=== PATIENT | female | born 1940 | race Caucasian/White ===

== ENCOUNTER 2017-09-08 10:16 | Inpatient (IN) ==
[2017-09-08] MEDS ORDERED: IOPAMIDOL 100 ML BOTTLE IJ ONE (10:17)
[2017-09-08] MEDS: METOPROLOL TARTRATE 5 MG/5 ML VIAL IV SCH ×3 (10:30→10:40)
[2017-09-08] MEDS ORDERED: DILTIAZEM 125 MG/25 ML VIAL IV ONE (10:32)
[2017-09-08] MEDS ORDERED: DILTIAZEM 25 MG/5 ML VIAL IV ONE ×2 (10:32→10:48)
[2017-09-08] MEDS ORDERED: METOPROLOL TARTRATE 5 MG/5 ML VIAL IV ONE ×2 (10:35→10:45)
[2017-09-08] MEDS ORDERED: FUROSEMIDE 40 MG/4 ML VIAL IV ONE (10:44)
[2017-09-08] MEDS ORDERED: DILTIAZEM 125 MG in DEXTROSE 5% IN WATER 100 ML IV SCH (11:00)
[2017-09-08 11:42] LABS: Mean Cell Volume 83.6 fL (80.0-100.0); Mean Corpuscular HGB Conc 32.1 g/dL (31.0-36.0); Mean Corpuscular Hemoglobin 26.8 pg (26.0-34.0); Platelet Count 209 K/mcL (140-440); RBC 4.66 M/mcL (4.00-5.20); Red Cell Distribution Width 14.8 % (11.5-14.5)
--- NOTE | 2017-09-08 11:42 | Cat Scan Report ---
CLINICAL INFORMATION: The atrial fibrillation pleural effusion shortness of breath COMPARISON: None. TECHNIQUE: 80 cc of Isovue-300 were injected intravenously. Using SmartPrep to maximize pulmonary artery opacification, 2.5 mm helical slices were obtained from the lung apices through the lung bases. Following reconstruction, 2.5 mm sagittal, coronal, and axial reformations were processed. The exam was reviewed at mediastinal, lung, and bone windows. The exam was performed using radiation dose optimization techniques including, but not limited to, automated exposure control, adjustment of the mA and/or kV according to patient size and use of iterative reconstruction technique. FINDINGS: Mediastinal windows show the pulmonary arteries are well opacified - no evidence of embolus. The central pulmonary arteries are mildly enlarged - the main pulmonary diameter is 3.4 cm. The thoracic aorta is noncontrasted, but normal in contour and caliber. The heart is mildly enlarged. There a few borderline enlarged lymph nodes in the lower mediastinum. It esophagus is normal thyroid is normal Pulmonary parenchymal windows show moderate right and small left pleural effusions with compressive atelectasis in the posterior right lower lobe. There are small tree-in-bud infiltrates in the anterior segment of the right upper lobe and the right middle lobe. Bones and soft tissues the chest wall are unremarkable IMPRESSION: 1. No evidence of pulmonary embolus 2. Mild enlargement of the central pulmonary arteries suggesting pulmonary hypertension. Consider confirmation with echocardiogram 3. Moderate right and small left pleural effusion with compressive atelectasis in the posterior right lower lobe 4. Small tree-in-bud infiltrates in the anterior segment of the right upper lobe and right middle lobe. These are typically infectious Interpreted and Authenticated by: Kenny Trevizo 09/08/17
[2017-09-08 11:49] LABS: ALT/SGPT 47 U/l (0-40); Albumin/Globulin Ratio 1.4 (1.0-2.3); Alkaline Phosphatase 60 U/L (39-117); Blood Urea Nitrogen 9 mg/dl (8-23)
[2017-09-08] MEDS ORDERED: PIPERACILLIN SODIUM/TAZOBACTAM 3.375 GM in DEXTROSE 5% IN WATER 50 ML IV ONE (11:55)
[2017-09-08 12:20] LABS: Appearance,Urine HAZY; Bacteria,Urine 0 /hpf (0); Bilirubin,Urine NEG (NEG); Color,Urine YELLOW; Glucose,Urine (UA) NEGATIVE (NEG); Leukocyte Esterase,Urine 25 /uL (NEG); Mucus,Urine MANY /hpf (0); Nitrate,Urine NEG (NEG); Protein,Urine 100 mg/dL (NEG); Urine Blood NEG mg/dL (<0.03); Urine RBC 3 /hpf (0-1); Urine Squamous Epithelial Cell 8 /hpf (0-4); Urine Transitional Epi Cells 1 /hpf (0-2); Urine WBC 4 /hpf (0-4); Urobilinogen,Urine NEG (NEG)
--- NOTE | 2017-09-08 12:25 | Emergency Department Note ---
SOB HPI - General Chief Complaint: Shortness of Breath/Dyspnea Stated Complaint: shortness of breath, new onset a fib Time Seen by Provider: 09/08/17 10:31 Source: patient Mode of arrival: ambulatory Limitations: no limitations - History of Present Illness 77-year-old female sent over from [facility] care with atrial fibrillation and rapid ventricular response. I reviewed 2 EKGs from them which confirm this. She has apparently been sick for the last 2-3 weeks with racing heart rate, and coughing. They can come together or separately but both have been an issue as of late. She denies any chest pain but she is having shortness of breath today that has become increasingly severe. Because of the cough she initially saw her primary care provider who ordered a chest x-ray-saw moderate size right- sided pleural effusion which was tapped with thoracentesis. This was done about 12 days ago here by Dr. Liang. Pathology report reveals no malignancy. Thoracentesis helped but now symptoms have returned even worse. She does not have any rhinorrhea or congestion or fever. No nausea vomiting or diarrhea. She does not have a history of atrial fibrillation so this is new onset; nor is she anticoagulated - Related Data Home Medications Medication Instructions Recorded Confirmed aspirin 81 mg tablet,delayed 81 mg PO QDAY 08/31/15 09/08/17 release beneflex 200 mg PO QDAY 08/31/15 09/08/17 calcium + D 800 mg PO QDAY 08/31/15 09/08/17 hydrocodone 5 mg-acetaminophen 325 1 tab PO Q6H PRN 08/31/15 09/08/17 mg tablet multivitamin with minerals tablet 1 tab-cap PO QDAY tab 08/31/15 09/08/17 naproxen sodium 220 mg capsule 220 mg PO QDAY PRN cap 08/31/15 09/08/17 Previous Rx's Medication Instructions Recorded celecoxib 200 mg capsule 200 mg PO QDAY #90 cap 04/09/16 albuterol sulfate HFA 90 1 puff INHALATION Q6H PRN #8 g 08/24/17 mcg/actuation aerosol inhaler fluticasone 250 mcg-salmeterol 50 1 inh INHALATION Q12H #60 each 08/24/17 mcg/dose blistr powdr for inhalation Allergies Allergy/AdvReac Type Severity Reaction Status Date / Time No Known Drug Allergies Allergy Verified 09/08/17 09:36 Review of Systems All systems ED: reviewed and negative except as stated. Past Medical History - Past Medical History Attestation: Yes: The following information was validated with the patient. Medical history: Reports: osteoporosis, other (Pleural effusion) Surgical history ED: Reports: hip replacement, other (Carpal tunnel, shoulder surgery, mammoplasty, foot surgery, thoracentesis) - Social History smoking status: Never smoker Physical Exam Some mild acute distress and shortness of breath secondary to heart rate in the 160s. Normocephalic atraumatic. Conjunctive are clear sclerae nonicteric. No nasal discharge or congestion. Oropharynx is pink and moist. Posterior pharynx clear. Neck is supple without lymphadenopathy or thyromegaly. 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 Heart is regular rate and rhythm no murmurs appreciated. Lungs are clear to auscultation bilaterally without wheezes rales rhonchi or respiratory distress-however decreased lung sounds right base. Abdomen soft nontender nondistended. Normoactive bowel sounds. No pedal edema. +2 radial pulse. Alert oriented able to answer questions. No dysarthria ataxia or tremor Limitations: no limitations Course Vital Signs Temperature 97.6 F 09/08/17 10:17 Pulse Rate 68 09/08/17 10:17 Respiratory Rate 24 H 09/08/17 10:17 Pulse Oximetry (%) 98 09/08/17 10:17 Temperature 98.7 F 09/09/17 04:01 Pulse Rate 84 09/08/17 19:18 Respiratory Rate 16 09/09/17 05:01 Blood Pressure 100/66 09/09/17 05:01 Pulse Oximetry (%) 94 09/09/17 05:01 Shortness of Breath/Dyspnea - Lab Data Lab results reviewed: Yes I reviewed the patient's lab results. Result diagrams: 09/08/17 10:59 09/08/17 10:42 Lab Results 09/08/17 09/08/17 09/08/17 Range/Units 10:42 10:42 10:59 WBC 6.2 (4.5-11.0) K/mcL RBC 4.66 (4.00-5.20) M/mcL Hgb 12.5 (12.0-15.0) g/dL Hct 39.0 (36.0-48.0) % POC Hct 42.0 (36.0-48.0) % MCV 83.6 (80.0-100.0) fL MCH 26.8 (26.0-34.0) pg MCHC 32.1 (31.0-36.0) g/dL RDW 14.8 H (11.5-14.5) % Plt Count 209 (140-440) K/mcL MPV 9.5 (7.4-10.4) fL Total Counted 100 Seg Neutrophils % 45 (38-78) % Band Neutrophils % Not Reportable Lymphocytes % 42 (15-49) % Monocytes % (Manual) 11 (1-12) % Eosinophils % (Manual) 1 (0-7) % Basophils % (Manual) 1 (0-2) % Platelet Estimate Normal (NORMAL) RBC Morphology Normal (NORMAL) VBG Lactic Acid (0.5-2.2) mmol/L POC Sodium 139 (133-145) mmol/L Sodium 137 (133-145) mmol/L POC Potassium 3.7 (3.3-5.1) mmol/L Potassium 3.7 (3.3-5.1) mmol/L POC Chloride 102 (96-108) mmol/L Chloride 100 (96-108) mmol/L Carbon Dioxide 21 L (22-30) mmol/L POC Total CO2 23 (22-30) mmol/L Anion Gap 16.0 (8-16) POC BUN 8 (8-23) mg/dl BUN 9 (8-23) mg/dl Creatinine 0.8 (0.6-1.1) mg/dl POC Creatinine 0.9 (0.6-1.1) mg/dl GFR Calculation 71 Glucose 98 (70-105) mg/dL POC Glucose 96 (70-105) mg/dL Calcium 8.9 (8.6-10.4) mg/dl POC WB Ioniz Calcium 1.16 (1.16-1.32) mmol/L Total Bilirubin 0.8 (0.0-1.0) mg/dL AST 40 H (0-37) U/l ALT 47 H (0-40) U/l Alkaline Phosphatase 60 (39-117) U/L Lactate Dehydrogenase 270 H (94-250) U/L Troponin T (0-0.03) ng/ml NT-Pro-B Natriuret Pep 2334.0 H (0-450) pg/ml Total Protein 6.8 7.0 (5.9-8.4) gm/dL Albumin 4.0 (3.2-5.2) gm/dL Globulin 2.8 (2.2-3.7) gm/dL Albumin/Globulin Ratio 1.4 (1.0-2.3) Urine Color Urine Appearance Urine pH (5.0-9.0) Ur Specific [place] (1.000-1.035) Urine Protein (NEG) mg/dL Urine Glucose (UA) (NEG) mg/dL Urine Ketones (NEG) mg/dL Urine Occult Blood (<0.03) mg/dL Urine Nitrate (NEG) Urine Bilirubin (NEG) mg/dL Urine Urobilinogen (NEG) mg/dL Ur Leukocyte Esterase (NEG) /uL Urine RBC (0-1) /hpf Urine WBC (0-4) /hpf Ur Squamous Epith Cells (0-4) /hpf Ur Transition Epith Cell (0-2) /hpf Urine Bacteria (0) /hpf Urine Mucus (0) /hpf Ur Culture Indicated? 09/08/17 09/08/17 09/08/17 Range/Units 10:59 11:12 11:37 WBC (4.5-11.0) K/mcL RBC (4.00-5.20) M/mcL Hgb (12.0-15.0) g/dL Hct (36.0-48.0) % POC Hct (36.0-48.0) % MCV (80.0-100.0) fL MCH (26.0-34.0) pg MCHC (31.0-36.0) g/dL RDW (11.5-14.5) % Plt Count (140-440) K/mcL MPV (7.4-10.4) fL Total Counted Seg Neutrophils % (38-78) % Band Neutrophils % Lymphocytes % (15-49) % Monocytes % (Manual) (1-12) % Eosinophils % (Manual) (0-7) % Basophils % (Manual) (0-2) % Platelet Estimate (NORMAL) RBC Morphology (NORMAL) VBG Lactic Acid 1.1 (0.5-2.2) mmol/L POC Sodium (133-145) mmol/L Sodium (133-145) mmol/L POC Potassium (3.3-5.1) mmol/L Potassium (3.3-5.1) mmol/L POC Chloride (96-108) mmol/L Chloride (96-108) mmol/L Carbon Dioxide (22-30) mmol/L POC Total CO2 (22-30) mmol/L Anion Gap (8-16) POC BUN (8-23) mg/dl BUN (8-23) mg/dl Creatinine (0.6-1.1) mg/dl POC Creatinine (0.6-1.1) mg/dl GFR Calculation Glucose (70-105) mg/dL POC Glucose (70-105) mg/dL Calcium (8.6-10.4) mg/dl POC WB Ioniz Calcium (1.16-1.32) mmol/L Total Bilirubin (0.0-1.0) mg/dL AST (0-37) U/l ALT (0-40) U/l Alkaline Phosphatase (39-117) U/L Lactate Dehydrogenase (94-250) U/L Troponin T < 0.01 (0-0.03) ng/ml NT-Pro-B Natriuret Pep (0-450) pg/ml Total Protein (5.9-8.4) gm/dL Albumin (3.2-5.2) gm/dL Globulin (2.2-3.7) gm/dL Albumin/Globulin Ratio (1.0-2.3) Urine Color Yellow Urine Appearance Hazy Urine pH 6.0 (5.0-9.0) Ur Specific [place] 1.010 (1.000-1.035) Urine Protein 100 A (NEG) mg/dL Urine Glucose (UA) Negative (NEG) mg/dL Urine Ketones 5/tr A (NEG) mg/dL Urine Occult Blood Neg (<0.03) mg/dL Urine Nitrate Neg (NEG) Urine Bilirubin Neg (NEG) mg/dL Urine Urobilinogen Neg (NEG) mg/dL Ur Leukocyte Esterase 25 A (NEG) /uL Urine RBC 3 H (0-1) /hpf Urine WBC 4 (0-4) /hpf Ur Squamous Epith Cells 8 H (0-4) /hpf Ur Transition Epith Cell 1 (0-2) /hpf Urine Bacteria 0 (0) /hpf Urine Mucus Many A (0) /hpf Ur Culture Indicated? No - Radiology Data Radiology results reviewed: Yes I reviewed the patient's radiology results. CT angiogram of the chest shows tree-in-bud formations consistent with possible pneumonia, moderate right and smaller left pleural effusions, no pulmonary embolism, likely pulmonary hypertension - EKG Data EKG attestation: Yes I reviewed and interpreted this EKG. EKG results narrative: EKG shows rate of 135 atrial fibrillation with rapid ventricular response Disposition Pt seen by [employer] C[employer]IST APPRENTICE/PA only: No Clinical Impression: Atrial fibrillation with rapid ventricular response, Pleural effusion Pneumonia Qualifiers: Pneumonia type: due to unspecified organism Laterality: bilateral Lung location : unspecified part of lung Qualified Code(s): J18.9 - Pneumonia, unspecified organism Summary: On initial intake she is found to have A. fib with RVR and so we gave her 5 mg metoprolol IV 2 without significant effect. However when she did have coughing episodes her rate went down from 150s and 160s down to the 130s. We started the Cardizem drip immediately then after bolus which brought her rate down into the 90s-120s. Workup was done with laboratory and CT scan of the chest to rule out pulmonary embolism. She continues to have a right-sided pleural effusion that will likely require repeat thoracentesis. Pulmonary hypertension findings will need echocardiogram. Tree-in-bud formation suggest underlying pneumonia so antibiotics written for after cultures done. She was also given furosemide for the effusion I discussed her case with Dr. Walker electric knife operator on-call at [place] in [facility]-he agreed with my plan to admit her here for control of her atrial fibrillation, treatment of her pneumonia and further workup. After anticoagulation and acute inpatient treatment stabilization she can be electively cardioverted or followed up for other treatment for atrial fibrillation , such as ablation , as an outpatient I then discussed her case with Dr. Shin the hospitalist who agreed to accept patient for further care and evaluation as an inpatient Disposition: Xfer As Inpt ([facility]) Condition: Fair
[2017-09-08 12:26] LABS: Basophils % (Manual) 1 % (0-2); Eosinophils % (Manual) 1 % (0-7); Lymphocytes % 42 % (15-49); Monocytes % (Manual) 11 % (1-12); Platelet Estimate NORMAL (NORMAL); RBC Morphology NORMAL (NORMAL); Segmented Neutrophils % 45 % (38-78)
--- NOTE | 2017-09-08 14:20 | Internal Med History&Physical ---
Medical - H&P: HPI Patient information: Note initiated : 09/08/17 at 2:17 pm Service Date, if different from initiated Date: [] Patient: Angella Leonard a 77 y/o F admitted on for shortness of breath, new onset a fib. Chief Complaint: [] History of present illness: Ms. Leonard is a 77 year old Female with h/o arthritis, presents to the ER today for evaluation for shortness of breath and cough. The patient notes that she has been having cough for the last 2 months, the cough is dry, and worse when lying down, better with being upright and some cough medications. She denies any hemoptysis, She notes that the cough has been progressively getting worse. She also reports progressive shortness of breath which has been bothering her. She is more tired than usual ,and her activities at home take more than usual time to complete. She denies any fever or chills, no rigors, no other complaints She was seen by her PCP who did a Chest x ray and it had right sided pleural effusion, this was tapped by radiology on the 9th of this month, the fluid cytology was negative, but I was unable to get any other lab reports for fluid analysis. The patient reports improvement in her symptoms after the thoracocentesis. The patient again started to have worsening shortness of breath and cough and called her PCP office, who advised her to go to minor care In the minor care she was noted to be tachycardic, and EKG showed afib with rvr , she was then sent to the ER for further evaluation. In the ER her labs showed elevated bnp, X ray showed right sided effusion, CTA chest was neg for pe, but did show some tree bud infiltrates, as well as roxy effusion, right > left. The patient was in afib with rvr, not responding to bolus IV rate control medications and was placed on a cardizem drip and admitted to the hospital for further management. All systems: reviewed and no additional remarkable complaints except as stated ( as per HPI) Medical - H&P: PMH Medical history: Medical History Atrial fibrillation with rapid ventricular response (Acute) Pleural effusion (Acute) Pneumonia (Acute) Irregularly irregular heart rhythm (Acute) Shortness of breath (Acute) Irritable airways (Acute) History of right hip replacement (Acute) Osteoporosis (Chronic) Osteopenia (Chronic) Surgical history: Past Surgical History Hx of shoulder surgery (Acute) Hx of reduction mammoplasty (Acute) Hx of knee surgery (Acute) Hx of hand surgery (Acute) Hx of carpal tunnel repair (Acute) Hx of arthroscopy (Acute) Hx of foot surgery (Acute) Pertinent family history: Family History paternal grandmother Osteoporosis Disorder of thyroid Brother had some cardiac issue, Medical - H&P: Meds Home Medications Medication Instructions Recorded Confirmed Type aspirin 81 mg tablet,delayed 81 mg PO QDAY 08/31/15 09/08/17 History release beneflex 200 mg PO QDAY 08/31/15 09/08/17 History calcium + D 800 mg PO QDAY 08/31/15 09/08/17 History hydrocodone 5 mg-acetaminophen 325 1 tab PO Q6H PRN 08/31/15 09/08/17 History mg tablet multivitamin with minerals tablet 1 tab-cap PO QDAY tab 08/31/15 09/08/17 History naproxen sodium 220 mg capsule 220 mg PO QDAY PRN cap 08/31/15 09/08/17 History celecoxib 200 mg capsule 200 mg PO QDAY #90 cap 04/09/16 09/08/17 Rx albuterol sulfate HFA 90 1 puff INHALATION Q6H PRN #8 g 08/24/17 09/08/17 Rx mcg/actuation aerosol inhaler fluticasone 250 mcg-salmeterol 50 1 inh INHALATION Q12H #60 each 08/24/17 Rx mcg/dose blistr powdr for inhalation Allergies Allergy/AdvReac Type Severity Reaction Status Date / Time No Known Drug Allergies Allergy Verified 09/08/17 09:36 Medical - H&P: Exam - Constitutional Vitals: Temp Pulse Resp BP Pulse Ox 97.6 F 84 21 118/68 93 09/08/17 10:17 09/08/17 13:46 09/08/17 13:46 09/08/17 13:46 09/08/17 13:46 Exam: GENERAL: The patient is a well-developed, well-nourished in no apparent distress. Is alert and oriented x3. VITAL SIGNS: Reviewed and as noted elsewhere. HEENT: Head is normocephalic and atraumatic. Extraocular muscles are intact. Pupils are equal, round, and reactive to light. Nares appeared normal. Mouth appears any without lesions. Mucous membranes are moist. NECK: Normal to inspection, Supple, No lymphadenopathy or thyromegaly. LUNGS: Air entry decreased on right base, mild basilar crackles, no wheezing or rhonchi noted, pt able to speak full sentences. HEART: Tachycardic rate and rhythm irregular, S1 and S2 heard, no Gallop, S3 or Rub Noted, No Gross murmur heard. ABDOMEN: Soft, nontender, and nondistended. Positive bowel sounds. No hepatosplenomegaly was noted. EXTREMITIES: No cyanosis, clubbing, rash, lesions or edema. NEUROLOGIC: Cranial nerves II through XII are grossly intact. Motor and Sensory System Grossly Intact PSYCHIATRIC: Normal affect, Normal Mood. Appropriate Behavior. SKIN: No ulceration or wounds noted, No jaundice, No rash noted. Medical - H&P: Reslt - Labs CBC & Chem 7: 09/08/17 10:59 09/08/17 10:42 Labs: Short CBC 09/08/17 Range/Units 10:59 WBC 6.2 (4.5-11.0) K/mcL Hgb 12.5 (12.0-15.0) g/dL Hct 39.0 (36.0-48.0) % Plt Count 209 (140-440) K/mcL BMP 09/08/17 10:42 Sodium 137 Potassium 3.7 Chloride 100 Carbon Dioxide 21 L BUN 9 Creatinine 0.8 Glucose 98 Calcium 8.9 Cardiac Enzymes 09/08/17 Range/Units 10:59 Troponin T < 0.01 (0-0.03) ng/ml Liver Function 09/08/17 Range/Units 10:42 Total Bilirubin 0.8 (0.0-1.0) mg/dL AST 40 H (0-37) U/l ALT 47 H (0-40) U/l Alkaline Phosphatase 60 (39-117) U/L Albumin 4.0 (3.2-5.2) gm/dL Urine 09/08/17 Range/Units 11:37 Urine Color Yellow Urine Appearance Hazy Urine pH 6.0 (5.0-9.0) Ur Specific [place] 1.010 (1.000-1.035) Urine Protein 100 A (NEG) mg/dL Urine Glucose (UA) Negative (NEG) mg/dL Medical - H&P: A/P - Narrative A/P Narrative: A/P Afib with RVR: new onset: Etiology chf possible as the likely source, maricruz in light of recurrent pleural effusion, on iv cardizem drip for now, start on oral meds and try to titrate down IV drip. If rate remains uncontrolled will add metoprolol. Her CHADSVASC score would warrant anticoagulation, will start on lovenox for now and shift to oral agents once pt is more stable. CHF, Acute congestive heart failiure: systolic vs diastolic? get echo, and monitor. Pleural effusion: previous studies not available,? transudative vs exudative, repeat thoracocentesis, and sent fluid for analysis, CT is neg for loculations, Pneumonia: Community acquired pna, IV rocehin and zithromax for now, monitor for response Cough: Secondary to pleural effusion? vs underlyuing copd pt was started on inhalers by pcp, plan t ocontinue duonebs for now. DVT on lovenox Full code Cardiac diet. Social History - Social History lives independently: Yes marital status: single education level: master's degree occupational status: retired - Exercise frequency: 5-6 times per week - Tobacco smoking status: Never smoker - Alcohol alcohol intake frequency: 0-2 drinks per day - Substance use substance use type: does not use
[2017-09-08] MEDS ORDERED: ONDANSETRON 4 MG/2 ML VIAL IV PRN (14:24)
[2017-09-08] MEDS ORDERED: NALOXONE HCL 0.4 MG/ML VIAL IV PRN (14:24)
[2017-09-08] MEDS ORDERED: AZITHROMYCIN 500 MG in DEXTROSE 5% IN WATER 250 ML IV SCH (14:24)
[2017-09-08] MEDS ORDERED: BISACODYL 10 MG SUPP.RECT PR PRN (14:24)
[2017-09-08] MEDS ORDERED: cefTRIAXone 1 GM in DEXTROSE 5% IN WATER 50 ML IV SCH (14:24)
[2017-09-08] MEDS ORDERED: oxyCODONE/APAP 5/325MG TABLET PO PRN (14:24)
[2017-09-08] MEDS ORDERED: ENOXAPARIN 80 MG/0.8 ML SYRINGE SQ ONE (15:30)
--- NOTE | 2017-09-08 17:07 | Ultrasound Report ---
CLINICAL INFORMATION: Moderate right pleural effusion TECHNIQUE: The procedure and risks including the possibility of bleeding, infection and pneumothorax were explained to the patient. She understood and wished to proceed. With the patient in upright position, the fluid was localized over the posterior right 10th intercostal space at the posterior axillary line. The skin in this region was marked, prepped and locally anesthetized with 1% lidocaine to the level the parietal pleura using a 25-gauge needle. An 18-gauge AquaMobileeh needle was then advanced, under ultrasound guidance, into the fluid. 1.1 L of simple transudative appearing pleural fluid was aspirated. Post procedure scanning shows no residual fluid IMPRESSION: Successful right thoracentesis yielding 1.1 L of simple appearing transudative fluid. No apparent complication Interpreted and Authenticated by: Kenny Trevizo 09/08/17
[2017-09-08] MEDS: cefTRIAXone 1 GM VIAL IV SCH (17:08)
--- NOTE | 2017-09-08 17:17 | XRay Report ---
CLINICAL INFORMATION: Post right thoracentesis COMPARISON: 08/27/2017 FINDINGS: There is no residual right pleural effusion. No evidence of pneumothorax or other complication. Moderate cardiomegaly is unchanged. Mediastinum is unremarkable. Pulmonary vessels are slightly distended is minimal interstitial edema. Minor left basilar atelectasis and tiny left pleural effusion. IMPRESSION: 1. Mild CHF 2. No residual right pleural effusion following thoracentesis. No pneumothorax or other complication 3. Small left pleural effusion Interpreted and Authenticated by: Kenny Trevizo 09/08/17
[2017-09-08 17:19] LABS: Amylase,Pleural Fluid 15 U/L; LDH,Pleural Fluid 90 U/L; Total Protein,Pleural Fluid 2.4 gm/dL
[2017-09-08] MEDS: FLUTICASONE/SALMETEROL 250/50 INHALER #14 INH SCH (17:26)
[2017-09-08 18:20] LABS: Lymphocytes,Pleural Fluid 67 %; Neutrophils,Pleural Fluid 7 %
[2017-09-08 18:22] LABS: Appearance,Pleural Fluid HAZY; Color,Pleural Fluid YELLOW; Nucleated Cells,Pleural Fld 562 /cumm; RBC,Pleural Fluid < 50000 /cumm
[2017-09-08] MEDS ORDERED: IPRATROPIUM/ALBUTEROL 3 ML AMPUL.NEB NEB SCH (19:00)
[2017-09-08] MEDS ORDERED: POTASSIUM CHLORIDE 20 MEQ PACKET PO ONE (19:45)
[2017-09-08] MEDS ORDERED: METOPROLOL TARTRATE 5 MG/5 ML VIAL IV PRN (20:43)
[2017-09-08] MEDS: DILTIAZEM 30 MG TABLET PO SCH (21:06)
[2017-09-08] MEDS ORDERED: MAGNESIUM SULFATE 2 GM/50 ML BAG IV ONE ×2 (22:07→22:28)
[2017-09-08] MEDS ORDERED: METHOCARBAMOL 500 MG TABLET PO ONE (22:08)
[2017-09-08] MEDS: METOPROLOL TARTRATE 25 MG TABLET PO SCH (22:09)
[2017-09-08] MEDS: DILTIAZEM 125 MG in DEXTROSE 5% IN WATER 100 ML IV SCH (22:19)
[2017-09-09] MEDS: DILTIAZEM 30 MG TABLET PO SCH ×5 (00:34→17:36)
[2017-09-09] MEDS ORDERED: ENOXAPARIN 80 MG/0.8 ML SYRINGE SQ SCH (01:00)
[2017-09-09] MEDS: DILTIAZEM 125 MG in DEXTROSE 5% IN WATER 100 ML IV SCH ×3 (02:28→12:23)
[2017-09-09] MEDS: FLUTICASONE/SALMETEROL 250/50 INHALER #14 INH SCH ×2 (02:28→15:12)
[2017-09-09] MEDS: PANTOPRAZOLE 40 MG TABLET PO SCH (06:57)
[2017-09-09] MEDS: CELECOXIB 200 MG CAPSULE PO SCH (08:13)
[2017-09-09] MEDS: APIXABAN 5 MG TABLET PO SCH ×2 (08:13→20:40)
[2017-09-09] MEDS: METOPROLOL TARTRATE 25 MG TABLET PO SCH ×2 (08:13→20:40)
[2017-09-09] MEDS: CALCIUM W/VIT D3 500 MG TABLET PO SCH (08:13)
[2017-09-09] MEDS: MULTIVIT,THER IRON,CA,FA & MIN 1 TABLET PO SCH (08:13)
[2017-09-09] MEDS: POTASSIUM CHLORIDE 10 MEQ TABLET PO SCH (08:38)
[2017-09-09] MEDS: FUROSEMIDE 20 MG TABLET PO SCH (08:43)
[2017-09-09] MEDS ORDERED: ASPIRIN 81 MG TAB.CHEW PO SCH (09:00)
[2017-09-09] MEDS: cefTRIAXone 1 GM VIAL IV SCH (09:02)
[2017-09-09] MEDS: AZITHROMYCIN 250 MG in DEXTROSE 5% IN WATER 250 ML IV SCH (09:53)
[2017-09-09] MEDS ORDERED: AZITHROMYCIN 250 MG in DEXTROSE 5% IN WATER 250 ML IV SCH (14:15)
[2017-09-09] MEDS ORDERED: DILTIAZEM 125 MG in DEXTROSE 5% IN WATER 100 ML IV PRN (15:00)
--- NOTE | 2017-09-09 16:01 | Internal Med Progress Note ---
Medical - PN: Subj Patient information: Note initiated : 09/09/17 at 3:57 pm Service Date, if different from initiated Date: [] Patient: Angella Leonard a 77 y/o F admitted on 09/08/17 for SOB, New onset AFib/ Afib with RVR, Pneumonia. Chief Complaint: [] Interval history: Ms. Leonard is a 77 year old Female with h/o arthritis, presents to the ER today for evaluation for shortness of breath and cough. The patient notes that she has been having cough for the last 2 months, the cough is dry, and worse when lying down, better with being upright and some cough medications. She denies any hemoptysis, She notes that the cough has been progressively getting worse. She also reports progressive shortness of breath which has been bothering her. She is more tired than usual ,and her activities at home take more than usual time to complete. She denies any fever or chills, no rigors, no other complaints She was seen by her PCP who did a Chest x ray and it had right sided pleural effusion, this was tapped by radiology on the of this month, the fluid cytology was negative, but I was unable to get any other lab reports for fluid analysis. The patient reports improvement in her symptoms after the thoracocentesis. The patient again started to have worsening shortness of breath and cough and called her PCP office, who advised her to go to minor care In the minor care she was noted to be tachycardic, and EKG showed afib with rvr , she was then sent to the ER for further evaluation. In the ER her labs showed elevated bnp, X ray showed right sided effusion, CTA chest was neg for pe, but did show some tree bud infiltrates, as well as roxy effusion, right > left. The patient was in afib with rvr, not responding to bolus IV rate control medications and was placed on a cardizem drip and admitted to the hospital for further management. Sep 09 patient seen examined no acute overnight issues pt had pleural tap done which was transudative cough better, but worse when trying to talk plan was to see if we couhd d/c her home today, but h er bp has been fairly labile she remains on dual chronotropic agents, metoprolol and cardizem. Pertinent ROS: Denies headache, dizziness Denies chest pain, palpitations opresent cough, sob improved. Denies abdominal pain, nausea or vomiting. - Constitutional Vitals: Vital Signs Temp Pulse Resp BP Pulse Ox 97.9 F 93 H 18 103/65 95 09/09/17 12:00 09/09/17 12:00 09/09/17 12:00 09/09/17 14:01 09/09/17 14:01 Period Temp Pulse Resp BP Sys/Fajardo Pulse Ox Last 24 Hr 97.9 F-99.0 F 84-93 16-18 68-117/29-82 89-98 Intake and Output 09/09/17 09/09/17 09/09/17 05:59 13:59 21:59 Intake Total 123 / 123 280 / 280 300 / 300 Output Total 125 / 125 300 / 300 300 / 300 Balance -2 / -2 -20 / -20 0 / 0 Intake & Output: Intake & Output 09/09/17 09/09/17 09/09/17 05:59 13:59 21:59 Intake Total 123 / 123 280 / 280 300 / 300 Output Total 125 / 125 300 / 300 300 / 300 Balance -2 / -2 -20 / -20 0 / 0 Intake: IV 3 / 3 Cardizem 125 mg In Dextrose 5% 3 / 3 in Water 100 ml @ 5 MG/HR 5 mls /hr IV Q6H [facility] Rx#:[id number] Oral 120 / 120 280 / 280 300 / 300 Output: Void Amount 125 / 125 300 / 300 300 / 300 Other: Meal Breakfast Percent of Meal Consumed 100% Exam: Constitutional; Afebrile, cooperative, alert, not in distress. Eyes- No icterus, , No periorbital swelling Ears- Ext ear normal, hearing normal to conversation. Neck- Midline trachea, supple Respiratory system: Air Entry equal on both sides, No crackles or wheezing, no rhonchi. CVS- Rate rhythm irregular, S1,S2 heard, no gallop, no rub. 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 Medical - PN: Obj Da - Labs CBC & Chem 7: 09/08/17 10:59 09/08/17 10:42 Labs: Abnormal Lab Results 09/08/17 09/08/17 09/08/17 11:37 10:59 10:42 RDW 14.8 H Carbon Dioxide AST ALT Lactate Dehydrogenase 270 H NT-Pro-B Natriuret Pep Urine Protein 100 A Urine Ketones 5/tr A Ur Leukocyte Esterase 25 A Urine RBC 3 H Ur Squamous Epith Cells 8 H Urine Mucus Many A 09/08/17 10:42 RDW Carbon Dioxide 21 L AST 40 H ALT 47 H Lactate Dehydrogenase NT-Pro-B Natriuret Pep 2334.0 H Urine Protein Urine Ketones Ur Leukocyte Esterase Urine RBC Ur Squamous Epith Cells Urine Mucus Meds: Medications Bisacodyl (Dulcolax) 10 mg WV Q3DP PRN PRN Reason: Constipation Calcium/Vitamin D (Calcium W/Vit D3) 500 mg PO DAILY [facility] Last Admin: 09/09/17 08:13 Dose: 500 mg Ceftriaxone Sodium (Rocephin) 1 gm IV Q24H [facility] Last Admin: 09/09/17 09:02 Dose: 1 gm Celecoxib (Celebrex) 200 mg PO QDAY [facility] Last Admin: 09/09/17 08:13 Dose: 200 mg Diltiazem HCl (Cardizem) 60 mg PO Q6 [facility] Last Admin: 09/09/17 12:24 Dose: 60 mg Furosemide (Lasix) 20 mg PO DAILY [facility] Last Admin: 09/09/17 08:43 Dose: 20 mg Azithromycin 250 mg/ Dextrose 250 mls @ 250 mls/hr IV Q24H [facility] Stop: 09/12/17 10:59 Last Admin: 09/09/17 09:53 Dose: 250 mls/hr Diltiazem HCl 125 mg/ Dextrose 125 mls @ 5 mls/hr IV Q6HP PRN; Protocol; 5 MG/ HR PRN Reason: TITRATE TO KEEP HR <100,SBP>90 Iron Carb/Multivit/[place]/Folic Acid (Multivitamin W/Minerals) 1 tab PO DAILY [facility] Last Admin: 09/09/17 08:13 Dose: 1 tab Metoprolol Tartrate (Lopressor) 5 mg IV Q4HP PRN PRN Reason: Tachyarrhythmias Last Admin: 09/08/17 22:10 Dose: 5 mg Metoprolol Tartrate (Lopressor) 25 mg PO BID [facility] Last Admin: 09/09/17 08:13 Dose: 25 mg Naloxone HCl (Narcan) 0.1 mg IV Q2MIN PRN PRN Reason: Opiate Reversal Ondansetron HCl (Zofran) 4 mg IV Q4HP PRN PRN Reason: Nausea And Vomiting Oxycodone/Acetaminophen (Percocet 5-325 Mg) 1 tab PO Q4HP PRN PRN Reason: PAIN LEVEL 3-6 Last Admin: 09/08/17 19:53 Dose: 1 tab Pantoprazole S[facility] ([facility]ix) [facility] Last Admin: 09/09/17 06:57 Dose: 40 mg Potassium Chloride (Kdur) 10 meq PO QACOX [facility] Last Admin: 09/09/17 08:38 Dose: 10 meq Fluticasone/Salmeterol (Advair 250-50 Diskus) 1 puff INH Q12H [facility] Last Admin: 09/09/17 15:12 Dose: Not Given Medical - PN: A/P - Time Spent With Patient Total time spent is greater than 50% in coordination of care (as documented) at patient's floor/unit and/or counseling patient: - Narrative A/P Narrative: A/P Afib with RVR: new onset: likely chf contributing, on cardizen, and metoprolol, bp stable this pm, if remains stable will continue with this regime , if not stop cardizem and use digoxin. patient on eliquis for anticoagulation. CHF, Acute congestive heart failiure, systolic hf on echo, started on lasix and Kcl, monitor response. no overly fluid overloaded Pleural effusion: previous studies not available,? transudative vs exudative, repeat thoracocentesis, and sent fluid for analysis, CT is neg for loculations, Pneumonia: Community acquired pna, IV rocehin and zithromax for now, monitor for response Cough: Secondary to pleural effusion? vs underlyuing copd pt was started on inhalers by pcp, unable to tolerate duoneb overnight, start on xoponex. DVT on eliquis Full code Cardiac diet. Medical - PN: Qual - VTE Deep Vein Thrombosis/Pulmonary Embolism Present on Admission: No
[2017-09-09] MEDS: LEVALBUTEROL 1.25 MG/3 ML AMPUL.NEB NEB SCH (19:27)
[2017-09-10] MEDS: DILTIAZEM 30 MG TABLET PO SCH ×3 (00:17→12:38)
[2017-09-10] MEDS: LEVALBUTEROL 1.25 MG/3 ML AMPUL.NEB NEB SCH ×3 (02:13→10:23)
[2017-09-10] MEDS: FLUTICASONE/SALMETEROL 250/50 INHALER #14 INH SCH (02:13)
--- NOTE | 2017-09-10 08:28 | XRay Report ---
CLINICAL INFORMATION: Follow pleural effusion COMPARISON: 09/08/2017 FINDINGS: Moderate cardiomegaly is unchanged. Mediastinum and pulmonary vessels are normal. Small right pleural effusion is partially reaccumulated. Tiny left pleural effusion is unchanged. Minor bibasilar atelectasis noted IMPRESSION: Slight reaccumulation of small right pleural effusion. Tiny left pleural effusion unchanged Interpreted and Authenticated by: Kenny Trevizo 09/10/17
[2017-09-10] MEDS ORDERED: ACETAMINOPHEN 325 MG TABLET PO PRN (08:50)
[2017-09-10] MEDS: cefTRIAXone 1 GM VIAL IV SCH (08:52)
[2017-09-10] MEDS: AZITHROMYCIN 250 MG in DEXTROSE 5% IN WATER 250 ML IV SCH (08:55)
[2017-09-10] MEDS: APIXABAN 5 MG TABLET PO SCH (08:56)
[2017-09-10] MEDS: MULTIVIT,THER IRON,CA,FA & MIN 1 TABLET PO SCH (08:56)
[2017-09-10] MEDS: METOPROLOL TARTRATE 25 MG TABLET PO SCH (08:56)
[2017-09-10] MEDS: FUROSEMIDE 20 MG TABLET PO SCH (08:56)
[2017-09-10] MEDS: CELECOXIB 200 MG CAPSULE PO SCH (08:56)
[2017-09-10] MEDS: CALCIUM W/VIT D3 500 MG TABLET PO SCH (08:56)
[2017-09-10] MEDS: POTASSIUM CHLORIDE 10 MEQ TABLET PO SCH (08:56)
[2017-09-10] MEDS: PANTOPRAZOLE 40 MG TABLET PO SCH (08:56)
[2017-09-10 09:03] LABS: Basophils # (Auto) 0.1 K/mcL (0.0-0.3); Basophils % (Auto) 1.1 % (0.0-2.0); Eosinophils # (Auto) 0.2 K/mcL (0.0-0.7); Granulocytes % (Auto) 57.1 % (38.0-78.0); Lymphocytes # (Auto) 1.5 K/mcL (1.5-4.8); Lymphocytes % (Auto) 26.1 % (15.5-49.0); Mean Corpuscular HGB Conc 32.3 g/dL (31.0-36.0); Mean Corpuscular Hemoglobin 26.8 pg (26.0-34.0); Monocytes # (Auto) 0.7 K/mcL (0.1-0.9); Monocytes % (Auto) 12.7 % (1.0-12.0); Platelet Count 192 K/mcL (140-440); RBC 4.45 M/mcL (4.00-5.20); Red Cell Distribution Width 14.5 % (11.5-14.5)
[2017-09-10 09:12] LABS: ALT/SGPT 78 U/l (0-40); Albumin/Globulin Ratio 1.7 (1.0-2.3); Alkaline Phosphatase 60 U/L (39-117); Bilirubin,Direct < 0.2 mg/dL (0.0-0.3); Blood Urea Nitrogen 9 mg/dl (8-23); Gamma Glutamyl Transpeptidase 28 U/L (5-36); Magnesium 2.3 mg/dL (1.6-2.5); Uric Acid 4.7 mg/dL (2.5-8.0)
--- NOTE | 2017-09-10 11:44 | Discharge Summary ---
Medical - DS: Prov Patient information: Note initiated : 09/10/17 at 11:42 am Service Date, if different from initiated Date: [] Patient: Angella Leonard 77 y/o F admitted on 09/08/17 for SOB, New onset AFib/ Afib with RVR, Pneumonia. Chief Complaint: [] Date of admission: 09/08/17 14:58 Discharge date: 09/10/17 Primary care physician: Diomedes Salvador Admitting clinician: Tiffani Shin Consults: 09/08/17 Consult to Physician [CONS] Stat Comment: Consulting Provider: Tiffani Shin Reason For Exam: Physician to Consult Discharging clinician: Tiffani Shin Medical - DS: Meds - Discharge Medications Prescriptions: Apixaban [Eliquis] 5 mg PO BID #60 tab Diltiazem HCl [Diltiazem 24Hr ER] 180 mg PO DAILY #30 cap.er.24h Furosemide [Lasix] 20 mg PO DAILY #30 tab Levofloxacin [Levaquin] 500 mg PO DAILY #3 tab Metoprolol Succinate [Toprol Xl] 50 mg PO DAILY #30 tab.er.24h Potassium Chloride [Kdur] 10 meq PO QAMCC #30 tab Active and Home Medications: Home Medications aspirin 81 mg tablet,delayed release 81 mg PO QDAY 08/31/15 [History Confirmed 09/08/17 Last Taken Unknown] beneflex 200 mg PO QDAY 08/31/15 [History Confirmed 09/08/17 Last Taken Unknown] calcium + D 800 mg PO QDAY 08/31/15 [History Confirmed 09/08/17 Last Taken Unknown] hydrocodone 5 mg-acetaminophen 325 mg tablet 1 tab PO Q6H PRN 08/31/15 [History Confirmed 09/08/17 Last Taken Unknown] multivitamin with minerals tablet 1 tab-cap PO QDAY tab 08/31/15 [History Confirmed 09/08/17 Last Taken Unknown] naproxen sodium 220 mg capsule 220 mg PO QDAY PRN cap 08/31/15 [History Confirmed 09/08/17 Last Taken Unknown] celecoxib 200 mg capsule 200 mg PO QDAY #90 cap 04/09/16 [Rx Confirmed 09/08/17 Last Taken Unknown] albuterol sulfate HFA 90 mcg/actuation aerosol inhaler 1 puff INHALATION Q6H PRN #8 g 08/24/17 [Rx Confirmed 09/08/17 Last Taken Unknown] fluticasone 250 mcg-salmeterol 50 mcg/dose blistr powdr for inhalation 1 inh INHALATION Q12H #60 each 08/24/17 [Rx Confirmed 09/08/17 Last Taken Unknown] Medical - DS: Hosp Hospital course: Ms. Leonard is a 77 year old Female with h/o arthritis, presents to the ER for evaluation for shortness of breath and cough. The patient notes that she has been having cough for the last 2 months, the cough is dry, and worse when lying down, better with being upright and some cough medications. She denies any hemoptysis, She notes that the cough has been progressively getting worse. She also reports progressive shortness of breath which has been bothering her. She is more tired than usual ,and her activities at home take more than usual time to complete. She denies any fever or chills, no rigors, no other complaints She was seen by her PCP who did a Chest x ray and it had right sided pleural effusion, this was tapped by radiology on the 9th of this month, the fluid cytology was negative, but I was unable to get any other lab reports for fluid analysis. The patient reports improvement in her symptoms after the thoracocentesis. The patient again started to have worsening shortness of breath and cough and called her PCP office, who advised her to go to minor care In the minor care she was noted to be tachycardic, and EKG showed afib with rvr , she was then sent to the ER for further evaluation. In the ER her labs showed elevated bnp, X ray showed right sided effusion, CTA chest was neg for pe, but did show some tree bud infiltrates, as well as roxy effusion, right > left. The patient was in afib with rvr, not responding to bolus IV rate control medications and was placed on a cardizem drip and admitted to the hospital for further management. In the hospital, the patient afib was initially managed with Cardizem drip, she was then successfully transitioned to oral meds, She needed both cardizem and metoprolol to keep her rate at goal, Her systolic bp was on the lower end, but her MAP stayed > 65. She had no dizziness with the new medications. The patient underwent an Echo which showed normal lv size, mild lvh, mildly decreased systolic function, biatrial enlargement moderate, unable to determine if diastolic dysfunction is present. Patient likely also has diastolic component to her heart failure. AT the time of discharge she will be sent home on Po eliquis 5mg bid for anticoagulation. Major risks benefits of the medication discussed, all questions answered. She has been started on po cardizem 180mg and po metoprolol SR 50mg once daily. She can be gradually transitioned to metoprolol only as outpatient. Should her bp not tolerate changes in meds and her heart rate not improve, digoxin can be considered. I will refer her to cash applications manager as outpatient. CHF: with global hypokinesis, and new onset afib, on beta blockers, started on lasix 20mg with Kcl supplementation for now, I have not started her on lisinopril given her soft blood pressure. this could be considered as outpatient if bp allows. Pneumonia: Some tree bud appearnces were noted on CT scan during presentation, pt was initially treated with rocehin/ zithromax, will be discharged on levofloxa x 3 more days to complete course of treatment. Cough/ Pleural effusion: The patient continues to have chr cough, which likely was a result of pleural effusion, however her cough is worse at night, I am adding prilosec 20mg at discharge to see if this will help her. Her pleural effusion was tapped again this visit, cultures neg, and it was transudative. I did not send for cytology as this was previously done by PCP and was negative. Should she have recurring effusion, she may benefit from evaluation by the labor relations teacher. She has been advised to avoid celebrex, nsaids and aspirin as she will now be on blood thinners. Discharge diagnosis: Afib with RVR, Pleural effusion, CHF, Pneumonia - Time Spent with Patient Total time spent providing and/or coordinating discharge services: Greater than 30 minutes Medical - DS: Exam - Constitutional Vitals: Vital Signs Temp Pulse Pulse Pulse Pulse Resp BP 09/10/17 07:44 90 18 09/10/17 06:58 90 18 09/10/17 04:01 113/61 09/10/17 04:00 98.9 F 113/61 09/10/17 02:02 103/90 09/10/17 00:01 101/56 09/10/17 00:00 99.0 F H 16 101/56 09/09/17 22:01 18 115/84 09/09/17 20:01 99.3 F H 103/70 09/09/17 20:00 100 H 100 H 120 H 20 09/09/17 19:29 110 H 18 09/09/17 18:00 18 117/65 09/09/17 16:01 93/79 09/09/17 16:00 99.2 F H 83 18 09/09/17 14:01 103/65 09/09/17 12:01 96/71 09/09/17 12:00 97.9 F 93 H 18 BP Pulse Ox 09/10/17 07:44 95 09/10/17 06:58 09/10/17 04:01 96 09/10/17 04:00 90 09/10/17 02:02 95 09/10/17 00:01 92 09/10/17 00:00 90 09/09/17 22:01 95 09/09/17 20:01 93 09/09/17 20:00 96 09/09/17 19:29 97 09/09/17 18:00 98 09/09/17 16:01 09/09/17 16:00 93/79 96 09/09/17 14:01 95 09/09/17 12:01 09/09/17 12:00 96/71 98 Intake and Output 09/09/17 09/10/17 09/10/17 21:59 05:59 13:59 Intake Total 600 / 600 600 / 600 Output Total 650 / 650 1200 / 1200 Balance -50 / -50 -600 / -600 Intake: Oral 600 / 600 600 / 600 Output: Void Amount 650 / 650 1200 / 1200 Other: Weight 164 lb 3.2 oz Additional comments: Constitutional; Afebrile, cooperative, alert, not in distress. Eyes- No icterus, , No periorbital swelling Ears- Ext ear normal, hearing normal to conversation. Neck- Midline trachea, supple Respiratory system: Air Entry equal on both sides, No crackles or wheezing, no rhonchi. CVS- Rate rhythm irregular, S1,S2 heard, no gallop, no rub. 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 Medical - DS: Data Procedures and tests throughout hospitalization: CTA chest IMPRESSION: 1. No evidence of pulmonary embolus 2. Mild enlargement of the central pulmonary arteries suggesting pulmonary hypertension. Consider confirmation with echocardiogram 3. Moderate right and small left pleural effusion with compressive atelectasis in the posterior right lower lobe 4. Small tree-in-bud infiltrates in the anterior segment of the right upper lobe and right middle lobe. These are typically infectious Xray at d/c MPRESSION: Slight reaccumulation of small right pleural effusion. Tiny left pleural effusion unchanged Labs on day of discharge: Labs from last 24 hours 09/10/17 09/10/17 08:02 08:02 WBC 5.6 RBC 4.45 Hgb 11.9 L Hct 37.0 MCV 83.0 MCH 26.8 MCHC 32.3 RDW 14.5 Plt Count 192 MPV 9.8 Gran % 57.1 Lymph % (Auto) 26.1 [place] % (Auto) 12.7 H Eos % (Auto) 3.0 Baso % (Auto) 1.1 Gran # 3.2 Lymph # (Auto) 1.5 [place] # (Auto) 0.7 Eos # (Auto) 0.2 Baso # (Auto) 0.1 Sodium 132 L Potassium 4.4 Chloride 96 Carbon Dioxide 21 L Anion Gap 15.0 BUN 9 Creatinine 0.9 GFR Calculation 62 Glucose 118 H Uric Acid 4.7 Calcium 8.4 L Phosphorus 2.6 L Magnesium 2.3 Total Bilirubin 0.6 Direct Bilirubin < 0.2 GGT 28 AST 58 H ALT 78 H Alkaline Phosphatase 60 Lactate Dehydrogenase 293 H Total Protein 6.3 Albumin 4.0 Globulin 2.3 Albumin/Globulin Ratio 1.7 Triglycerides 68 Preliminary micro results at discharge 09/08/17 13:05 Blood Culture - Preliminary Blood 09/08/17 12:14 Blood Culture - Preliminary Blood Medical - DS: A/P - Patient/Caregiver Discharge Instructions Activity: increase activity as tolerated Diet: Low Sodium (2gm), Cardiac Additional Instructions: Take medications as prescribed You have been started on eliquis, 5mg twice daily as a blood thinner, to prevent future strokes, its important you takes this medication, and do not stop unless you have talked with your doctor, monitor for bleeding, in urine and stools, Call your doctor if you notice any black stools or blood in urine and stools. you have been started on cardizem and metoprolol for atrial fibrillation. This will keep your heart rate in check, should you become dizzy with these medications, please go to the ER or talk to your doctor. Your doctor will adjust these medications in the clinic and hopefully you will need only one medication in the future. You also have heart failiure, and need to watch your salt intake closely, follow a low salt diet, I have started you on a water pill furosemide 20mg once daily, take a potassium supplement with this medication. If you are unable to tolerate the potassium supplement, then please eat foods rich in potassium. You had pneumonia on CT on presentation and need antibiotics x 3 more days. Go to the ER if dizziness, chest pain, shortness of breath or any other concerns. Follow up with PCP in 1 week, make sure your PCP checks your Kidney function / electrolytes to make sure you are doing ok Follow up with Dr Gracia in 1-2 weeks, Gun Stock Maker for further evaluation for new onset heart failure and atrial fibrillation. - Follow up Plan Follow up with: Diomedes Salvador MD [Primary Care Provider] - 09/24/17 2:30 pm Bryant Gracia MD [Physician] - Disposition: Home, Self-Care Prognosis: Fair Rehab Potential: Fair I certify that the patient requires SNF services: No Overall status at discharge: patient is progressing back to baseline Medical - DS: Qual - VTE Deep Vein Thrombosis/Pulmonary Embolism Present on Admission: No
[2017-09-10] MEDS ORDERED: ENOXAPARIN 40 MG/0.4 ML SYRINGE SQ ONE (11:54)
[2017-09-10] MEDS ORDERED: DILTIAZEM 180 MG CAP.XL.24H PO ONE (12:34)
[2017-09-10] MEDS ORDERED: METOPROLOL SUCCINATE 25 MG TAB.XL.24H PO ONE (13:00)
[2017-09-11] MEDS ORDERED: DILTIAZEM 180 MG CAP.XL.24H PO ONE (13:00)
== END 2017-09-10 14:05 | disposition home or self-care (01) | DRG 308 ==
LOC: ED 10:16 → ICU 14:40
PROVIDERS: ADMIT Internal Medicine; ATTEND Internal Medicine